=== PATIENT | male | born 1970 | race Caucasian/White ===

== ENCOUNTER 2019-04-28 09:50 | Observation (INO) | payer MEDICAID, OTHER ==
[~2019-04-28] VITALS: Ht 170.2 cm; Wt 150.1 kg
[~2019-04-28 09:50] MED LIST: ARMO250T2 PO; CALC-534 PO; CLON1TAB11 PO; CLON2TAB9 PO; FURO-92 PO; HYDR-3237 PO; MORP15TA PO; MORP30TA PO; OMEP-110 PO; OXCA300T19 PO; OXCA600T10 PO
--- NOTE | 2019-04-28 10:45 | NUR ---
PT C/O CP FOR 2 DAYS AND INCREASED BILATERAL LEG SWELLING WITH INCREASED PAIN ON LEFT CALF. PT HAS TO SLEEP PROPPED UP. PT ON MONITOR. WAITING FOR ORDERS.
[2019-04-28] MEDS ORDERED: FUROSEMIDE 40 MG/4 ML IV ONE (11:00)
[2019-04-28 11:20] LABS: BASOPHILS # (AUTO) 0.16 x10^3/uL (0-0.1); BASOPHILS % (AUTO) 1 % (0-1); EOSINOPHILS # (AUTO) 0.21 x10^3/uL (0-0.4); EOSINOPHILS % (AUTO) 2 % (1-7); LYMPHOCYTES # (AUTO) 0.97 x10^3/uL (1-3.4); LYMPHOCYTES % (AUTO) 9 % (22-44); MD NO; MEAN CORPUSCULAR HEMOGLOBIN 30.4 pg (27.5-34.5); MEAN CORPUSCULAR HGB CONC 31.7 g/dL (33.2-36.2); MEAN CORPUSCULAR VOLUME 95.7 fL (81-97); MEAN PLATELET VOLUME 8.9 fL (7.4-10.4); MONOCYTES # (AUTO) 0.95 x10^3/uL (0.2-0.8); MONOCYTES % (AUTO) 9 % (2-9); NEUTROPHILS # (AUTO) 8.85 x10^3/uL (1.8-6.8); NEUTROPHILS % (AUTO) 80 % (42-75); PLATELET COUNT 173 x10^3/uL (130-400); RED BLOOD COUNT 5.65 x10^6/uL (4.38-5.82); RED CELL DISTRIBUTION WIDTH 15.9 % (9.4-14.8)
[2019-04-28 11:30] LABS: ALANINE AMINOTRANSFERASE 31 U/L (12-78); ALBUMIN 3.2 g/dL (3.4-5.0); ANION GAP 3 mmol/L (5-15); CALCIUM 9.1 mg/dL (8.5-10.1); CHLORIDE 98 mmol/L (98-107); CREATININE 0.99 mg/dL (0.7-1.3)
[2019-04-28 11:35] LABS: ALKALINE PHOSPHATASE 78 U/L (45-117); BILIRUBIN,TOTAL 0.6 mg/dL (0.2-1.0); TOTAL PROTEIN 8.1 g/dL (6.4-8.2); TROPONIN I < 0.015 ng/mL (0.000-0.045)
[2019-04-28] MEDS ORDERED: FUROSEMIDE 40 MG/4 ML ONE (12:12)
--- NOTE | 2019-04-28 12:17 | NUR ---
CHART UP FOR MD RECHECK. PT AWARE. VSS.
[2019-04-28] MEDS ORDERED: LORazepam 1MG TABLET PO ONE (12:30)
--- NOTE | 2019-04-28 13:00 | NUR ---
PT C/O RIGHT UQ ABD PAIN WITH VOIDING AND PT REPORTS IT'S HIS HERNIA AND IS RELEIVED BY COUGHING. DR. HASKINS AWARE.
--- NOTE | 2019-04-28 13:02 | NUR ---
HOSPITALIST AT BEDSIDE. HOSPITAL BED REQUESTED FOR ER ROOM PT IS TELE HOLD.
[2019-04-28] MEDS ORDERED: D5%-0.45NACL+KCL 20MEQ 1,000 ML IV SCH (13:03)
[2019-04-28] MEDS ORDERED: ACETAMINOPHEN 325 MG TABLET PO PRN (13:30)
[2019-04-28] MEDS ORDERED: GUAIFENESIN/DM 200-20MG, 10ML UDC PO PRN (13:30)
[2019-04-28] MEDS ORDERED: KETOROLAC 30 MG/1 ML IV PRN (13:30)
[2019-04-28] MEDS ORDERED: BUTALB/APAP/CAFFEINE 50MG/325MG/40MG PO PRN ×2 (13:30)
[2019-04-28] MEDS ORDERED: LABETALOL 5MG/ML, 20ML IVPush PRN (13:30)
[2019-04-28] MEDS ORDERED: DOCUSATE 100 MG CAPSULE PO PRN (13:30)
[2019-04-28] MEDS ORDERED: ENOXAPARIN 40 MG/0.4 ML SQ SCH (13:30)
[2019-04-28] MEDS ORDERED: ONDANSETRON 2MG/ML, 2ML IVPush PRN (13:30)
[2019-04-28] MEDS ORDERED: hydrALAzine 20 MG/ML, 1ML IVPush PRN (13:30)
[2019-04-28] MEDS ORDERED: VANCOMYCIN PER PHARMACY MC PRN (13:30)
[2019-04-28] MEDS ORDERED: IBUPROFEN 600 MG TABLET PO PRN (13:30)
[2019-04-28] MEDS ORDERED: ONDANSETRON ODT 4 MG PO PRN (13:30)
[2019-04-28] MEDS ORDERED: TRAZODONE 50MG TABLET PO PRN (13:30)
[2019-04-28] MEDS ORDERED: LORazepam 1MG TABLET ONE (13:57)
[2019-04-28] MEDS ORDERED: ENOXAPARIN 40 MG/0.4 ML ONE (13:57)
[2019-04-28 14:03] LABS: FREE T4 (FREE THYROXINE) 0.99 ng/dL (0.76-1.46); TROPONIN I < 0.015 ng/mL (0.000-0.045)
[2019-04-28 14:08] LABS: HEMOGLOBIN A1C 6.7 % (4.2-6.3)
--- NOTE | 2019-04-28 14:23 | NUR ---
PT MOVED TO HOSPITAL BED AND MECIATED ORDERD. PT REPORTS RELIEF AFTER ATIVAN FOR STOMACH PAIN. VSS.
--- NOTE | 2019-04-28 14:55 | NUR ---
PT RESTING IN NAD. WAITING ON TELE BED.
[2019-04-28] MEDS ORDERED: ALBUTEROL SULFATE 2.5 MG/3 ML NPPB PRN (15:00)
--- NOTE | 2019-04-28 15:23 | NUR ---
PT RESTING IN NAD. STILL WAITING ON TELE BED.
--- NOTE | 2019-04-28 16:35 | NUR ---
PT RESTING IN NAD. WAITING FOR TELE ASSIGNEMNT. SINCE ATIVAN GIVEN EALRIER, PT HAS BEEN RESTING. PT REPORTED HE DID NOT SLEEP MUCH LAST NOC.
--- NOTE | 2019-04-28 17:34 | NUR ---
PT RESTING WITH NEED FOR OXY MASK. PT HAS HX OF SLEEP APNEA AND DESATED TO 88% ON 4 LITERS. PT REQUESTED OXY MASK OVER CANNULA.
[2019-04-28 19:27] LABS: TROPONIN I < 0.015 ng/mL (0.000-0.045)
[2019-04-28] MEDS ORDERED: VANCOMYCIN 2,600 MG in SODIUM CHLORIDE 0.9% 500 ML IV ONE (19:30)
[2019-04-28] MEDS ORDERED: PHARMACOKINETIC MONITORING MC PRN (19:30)
[2019-04-28] MEDS ORDERED: PHARMACOKINETIC CONSULTATION MC ONE (19:30)
--- NOTE | 2019-04-28 19:30 | NUR ---
CALL MADE TO LAB FOR UA SPECIMEN COLLECTED ABOUT 7 HOURS AGO BUT PER LAB SPECIMEN IS TOO OLD. PT AND FAMILY AWARE OF NEED TO COLLECT A NEW SAMPLE.
--- NOTE | 2019-04-28 19:30 | NUR ---
SPOKE TO BENOIT Romano NP FROM THE HOSPITALIST GROUP AND NO BLOOD CULTURES NEEDED PRIOR TO VANCOMYCIN.
[2019-04-28 21:16] LABS: MICROSCOPIC AUTO
[2019-04-28 21:18] LABS: CULTURE INDICATED? YES
[2019-04-28 23:16] VITALS: BP 121/77
[2019-04-29 03:32] VITALS: BP 139/89
[2019-04-29 06:33] LABS: MEAN CORPUSCULAR HEMOGLOBIN 30.7 pg (27.5-34.5); MEAN CORPUSCULAR HGB CONC 31.4 g/dL (33.2-36.2); MEAN CORPUSCULAR VOLUME 97.8 fL (81-97); PLATELET COUNT 169 x10^3/uL (130-400); RED BLOOD COUNT 5.49 x10^6/uL (4.38-5.82); RED CELL DISTRIBUTION WIDTH 16.5 % (9.4-14.8)
[2019-04-29 06:36] LABS: ALBUMIN 2.9 g/dL (3.4-5.0); CHLORIDE 101 mmol/L (98-107)
[2019-04-29 06:41] LABS: ALANINE AMINOTRANSFERASE 37 U/L (12-78); ALKALINE PHOSPHATASE 69 U/L (45-117); ANION GAP 0 mmol/L (5-15); BILIRUBIN,TOTAL 1.1 mg/dL (0.2-1.0); CALCIUM 9.4 mg/dL (8.5-10.1); CREATININE 0.96 mg/dL (0.7-1.3); TOTAL PROTEIN 7.7 g/dL (6.4-8.2)
[2019-04-29 07:02] LABS: BASOPHILS # (AUTO) 0.04 x10^3/uL (0-0.1); BASOPHILS % (AUTO) 0 % (0-1); EOSINOPHILS # (AUTO) 0.08 x10^3/uL (0-0.4); EOSINOPHILS % (AUTO) 1 % (1-7); LYMPHOCYTES # (AUTO) 0.77 x10^3/uL (1-3.4); LYMPHOCYTES % (AUTO) 7 % (22-44); MD SCAN; MONOCYTES % (AUTO) 7 % (2-9); NEUTROPHILS # (AUTO) 9.22 x10^3/uL (1.8-6.8); NEUTROPHILS % (AUTO) 84 % (42-75)
[2019-04-29] MEDS ORDERED: VANCOMYCIN 2,200 MG in SODIUM CHLORIDE 0.9% 500 ML IV SCH (07:30)
[2019-04-29 07:55] VITALS: BP 142/80
[2019-04-29] MEDS ORDERED: REGADENOSON 0.4 MG/5 ML SYRINGE ONE (08:15)
[2019-04-29] MEDS ORDERED: ENOXAPARIN 40 MG/0.4 ML SQ SCH (14:00)
[2019-04-29 15:12] VITALS: BP 151/86
[2019-04-29] MEDS ORDERED: AMOX1TAB64 PO (16:09)
[2019-04-29] MEDS ORDERED: METF500T PO (16:16)
== END 2019-04-29 19:35 | disposition home or self-care (01) ==
LOC: ED 12:45 → EDIP 12:46 → INTOOBSV 12:46 → 5SO 20:17
PROVIDERS: ADMIT Internal Medicine; ATTEND Internal Medicine
DX: R07.9 Chest pain, unspecified (principal); E66.01 Morbid (severe) obesity due to excess calories; I87.8 Other specified disorders of veins; L03.116 Cellulitis of left lower limb; L03.115 Cellulitis of right lower limb; D72.829 Elevated white blood cell count, unspecified; E87.1 Hypo-osmolality and hyponatremia; E87.3 Alkalosis; E46 Unspecified protein-calorie malnutrition; R73.9 Hyperglycemia, unspecified; J44.9 Chronic obstructive pulmonary disease, unspecified; Z87.891 Personal history of nicotine dependence; Z88.0 Allergy status to penicillin; Z88.6 Allergy status to analgesic agent; Z79.899 Other long term (current) drug therapy
CPT/HCPCS: 36415; 71045; 78452; 80053; 81001; 83036; 83690; 83735; 83880; 84100; 84439; 84443; 84484; 85025; 85379; 87086; 93005; 93017; 93970; 96365; 96366; 96372; 96375; 97161; 97165; 99284; A9502; C8929; G0378; J1650; J1885; J1940; J2785; J3370; J7040; Q9957